=== PATIENT | female | born 1990 | race American Indian/Alaskan Native ===

== ENCOUNTER 2021-05-13 09:01 | Outpatient (CLI) | payer OTHER | END 2021-05-13 09:02 | disposition home or self-care (01) | LOC: PF 09:01 | PROVIDERS: ATTEND Internal Medicine | DX: G47.33 Obstructive sleep apnea (adult) (pediatric) (principal); G47.00 Insomnia, unspecified; N60.19 Diffuse cystic mastopathy of unspecified breast; E28.2 Polycystic ovarian syndrome; R06.02 Shortness of breath; R41.3 Other amnesia; M79.10 Myalgia, unspecified site | CPT/HCPCS: 94010; 94729 ==